=== PATIENT | female | born 2005 | race Caucasian/White ===

== ENCOUNTER 2024-10-03 23:17 | Emergency (ER) | payer BC, SELFPAY ==
[2024-10-03 23:19] VITALS: BP 144/98; PULSE 129; RESP 20; TEMP 36.8; O2SAT 100; BMI 19.2
--- NOTE | 2024-10-03 23:56 | PC.NURSE ---
notfied radiology at this time that pt needs TVUS
[2024-10-03] MEDS: AMOXICILLIN/CLAVULANATE POTASSIUM 875/125MG TABLET 1 EACH PO (23:57)
[2024-10-03] MEDS: diphenhydrAMINE ELIXIR 12.5MG/5ML UDC 12.5 MG PO (23:57)
--- NOTE | 2024-10-03 23:57 | HMH.EDGENADL ---
Discharge Plan Disposition Patient Disposition: Home, Self-Care Condition: Good Prescriptions Prescriptions: New amoxicillin-pot clavulanate 875-125 mg tablet 1 tab PO BID Qty: 20 0RF Referrals Follow up/Referrals: Meka Harman DO [Staff Physician] - See instructions (positive quant hcg without visualized intrauterine , presence of right ovarian cyst G1, P0) Provider,Referral, [Primary Care Provider] - See instructions Activity Restrictions/Add. Instructions Additional Instructions/Restrictions: You were evaluated in the ER and are appropriate for discharge at this time. Take Tylenol if needed for pain, do not exceed the recommended dose on the bottle. Drink water and eat a small snack when you take this medication to avoid side effects. Use the provided dental balls as directed. Leave on for 1 hour, remove for 1 hour. Do not sleep or eat/drink while these are in place. Call Dr. Harman's office for an appointment as soon as possible. Take the prescribed antibiotics as directed, do not skip doses, do not stop taking them early. Follow-up closely with a dentist for your dental pain, the details for the dental walk-in clinic are provided below. Return to the ER with new, worsening, or otherwise concerning symptoms. dental walk-in clinic: [address] [place] [address] They are open Sunday through Sunday except they are closed this 10/06/2024 and this 10/08/2024. You must arrive as early as possible as they are a first come, first serve clinic, they open at 7:45 AM. Clinical Impressions Clinical Impression: Cyst of right ovary, Pain, dental, Early stage of , Gingivitis Discharge ED Provider: Ale Mohan General Adult HPI General Chief complaint: Dental/Oral Stated complaint: tooth pain Time Seen by Provider: 10/03/24 23:24 Mode of Arrival: Ambulatory Source of Information: Patient Limitations: No Limitations Description of Symptoms (Recalled from ER Triage Doc. by RN): Pt presents to ED for dental pain. Pt states she has a broken tooth and has not followed up with dentistry. Pt states she normally takes ibuprofen but she's now and Tylenol doesn't work. Pt states pain is 8/10. History of Present Illness HPI narrative: 19-year-old female presents to the ER complaining of left mandibular dental pain. She states she has had a broken tooth for a long time in the left lower area but has not followed up with dentistry. Patient states she would typically take ibuprofen for this problem but she had a positive test at home 3 days ago. She states she took Tylenol but has not had improvement. Patient reports no difficulty breathing or swallowing, no fevers, chills, chest pain, shortness of breath. She has not had any vomiting, diarrhea, abdominal pain, or vaginal bleeding or discharge. Patient reports this to be her first . G1, P0. LMP 4 weeks ago. She does not have an OB but would like to see Dr. Harman Related Data Previous Rx's ?Medication ?Instructions ?Recorded amoxicillin 875 mg-potassium 1 tab PO BID #20 tabs 10/04/24 clavulanate 125 mg tablet Allergies Allergy/AdvReac Type Severity Reaction Status Date / Time No Known Allergies Allergy Verified 10/03/24 23:49 [facility] Disclaimer: The information contained in this section may have been updated after the patient was seen, as this information can be updated by other users. Social History Smoking Status: Unknown if ever smoked alcohol intake: never current occupational status: other Travel in the last 8 weeks: None ROS Obtained: Yes Systems reviewed as appropriate & no additional complaints except as documented per HPI Physical Exam General General appearance: alert and in no apparent distress Head Head exam: atraumatic and normocephalic Eye Eye exam: Present PERRL and EOMI ENT ENT exam: Present mucous membranes moist and other (No submandibular or sublingual swelling, no woodiness of the floor of the mouth, no lymphadenopathy) Expanded ENT Exam Teeth exam: Present fractured tooth # (19), dental tenderness # (19) and gingival swelling (with redness no abscess) Neck Neck exam: Present normal inspection and full ROM Chest Chest inspection: Present symmetric chest wall rise Respiratory Respiratory exam: Absent respiratory distress or stridor Cardiovascular Cardiovascular exam: Present regular rate and normal rhythm Abdominal Exam Abdominal exam: Present soft; Absent distention or tenderness Extremities Exam Extremities exam: Present full ROM; Absent edema Neurological Exam Neurological exam: Present alert and oriented X3; Absent motor sensory deficit Psychiatric Psychiatric exam: Present normal affect and normal mood Skin Skin exam: Present warm and dry Medical Decision Making Medical Records Screening: Per USPSTF and CDC recommendations, given the prevalence of disease in our region, it is our hospital?s policy to screen for HIV and viral Hepatitis for all patients aged 18 and over and those with ongoing risk factors. [place] Inquiry Pt receiving controlled substance: No Vital Signs: 10/03/24 23:19 Temperature 98.2 F Temperature Source Oral Pulse Rate [Left] 129 H Respiratory Rate 20 Blood Pressure [Right Arm] 144/98 H Blood Pressure Mean [Right Arm] 113 02 Sat by Pulse Oximetry 100 Oxygen Delivery Method Room Air Lab Data Lab Results 10/04/24 : HCG, Quant 1543 H Orders (Tests/Meds): ED MEDICATIONS Generic Name Dose Route Start Last Admin Trade Name Freq PRN Reason Stop Dose Admin Diphenhydramine HCl 12.5 mg 10/03/24 23:45 10/03/24 23:57 Diphenhydramine Elixir 12.5mg/5ml Udc PO 11/02/24 23:44 12.5 mg ONCE MARIO Administration Diphenhydramine HCl 12.5 mg 10/03/24 23:45 Diphenhydramine Elixir 12.5mg/5ml Udc PO 11/02/24 23:44 ONCE MARIO Discontinued Medications Generic Name Dose Route Start Last Admin Trade Name Freq PRN Reason Stop Dose Admin Acetaminophen 1,000 mg 10/04/24 00:20 10/04/24 01:10 Acetaminophen 500mg Tab PO 10/04/24 00:21 1,000 mg ONCE ONE Administration Amoxicillin/Clavulanate Potassium 1 each 10/03/24 23:40 10/03/24 23:57 Amoxicillin/Clavulanate Potassium 875/125mg Tablet PO 10/03/24 23:41 1 each ONCE ONE Administration ORDERS Category Date Time Status POCUS Point of Care (ER Only) Stat Exams 10/03/24 23:40 Completed HCG,Quantitative Stat Lab 10/03/24 23:40 Completed US OB transvaginal Routine Ultrasound 10/04/24 Completed Medical Decision Narrative: In summary, this 19-year-old female who is otherwise healthy, no chronic medical conditions, no daily medications, no known drug allergies who believes she is approximately 4 weeks based on home test and last menstrual period presents to the emergency department today with left lower dental pain. On initial evaluation patient is hemodynamically stable, afebrile, she has obvious dental fracture of the left mandibular molar tooth #19 with mild gingival swelling and erythema but no abscess. No submandibular or sublingual swelling or woodiness, no lymphadenopathy. Abdominal exam benign. Patient does not report any vaginal bleeding or discharge. Patient is obviously anxious which I believe likely caused her tachycardia that was present on arrival but absent during my exam but is otherwise behaving appropriately. Differential diagnosis includes but not limited to dental fracture, dental infection, dental abscess, I considered Bobby's angina but do not have evidence of this on exam, also considered intrauterine , ectopic , heterotopic . Quantitative hCG and [id number] ultrasound were ordered. I personally performed and interpreted [id number] ultrasound and do not visualize a definitive IUP and there is a fluid-filled sac in the right adnexa. Concern for possible ectopic . Formal transvaginal ultrasound ordered. Labs reviewed demonstrate quantitative hCG of 1543 which should be appropriate for patient's EGA. Transvaginal ultrasound does not demonstrate definitive IUP, there is a right ovarian cyst, ectopic was not identified. On reassessment patient remains stable and comfortable. She is not having abdominal pain or vaginal bleeding or abnormal discharge so I do not believe admission for serial abdominal exams or emergent OB consultation is indicated at this time. I did refer her to Dr. Harman for close follow-up. Patient was given explicit instructions on calling her office immediately for close follow-up and reevaluation. Patient was also given instructions on use of dental balls as well as symptomatic management at home, use of the Augmentin that was prescribed for dental infection, dentistry follow-up, and strict return precautions for the ER. She and significant other at bedside indicated understanding and the patient was discharged in stable condition. Procedures Miscellaneous Procedure Procedure Performed: Limited OB ultrasound Indication: Positive home test Identified structures: [-Uterus -Left adnexa -Right adnexa -Pouch of Mayur] Findings: Uterus: No definitive IUP FHR: Unable to be measured Right adnexa: Fluid-filled sac with abnormality Left adnexa: Unremarkable Cul de sac: Unremarkable Impression: -IUP: Not identified - heart rate: Not able to be measured No obvious ectopic , however there is a fluid-filled sac in the right adnexa concerning for possible early gestational sac versus ovarian cyst Images were saved to permanent archive The study was technically adequate CPT Transabdominal: 82618-40 This study was performed by me, and I personally interpreted all images/videos. Based on my clinical judgement, these images were adequate but did necessitate further imaging. Critical Care Critical Care Time Critical Care Time: No
--- NOTE | 2024-10-04 | US_ITS ---
PROCEDURE INFORMATION: Exam: US , Transvaginal Exam date and time: 10/04/2024 12:36 AM Age: 19 years old Clinical indication: Screening exam; Other: Area seen on RT adnexa done on US in er; LABS AND CLINICAL REPORTS: Last menstrual period start date: 09/03/2024 Gestational age (Established): 4 w 3 d Estimated due date (Established): 06/10/2025 TECHNIQUE: Imaging protocol: Real-time transvaginal obstetrical ultrasound of the maternal pelvis with image documentation. Transvaginal imaging was used for better evaluation of the fetus, adnexa, and/or cervix. COMPARISON: No relevant prior studies available. FINDINGS: Gestation: No intrauterine gestational sac visualized. MATERNAL: Right ovary/adnexa: Right ovary measures 3.18 cm x 4.24 cm x 3.72 cm. Right ovarian volume is 26.26 mL. 3.1 x 2.5 x 3 cm simple cyst. Left ovary/adnexa: Left ovary measures 1.73 cm x 2.49 cm x 2.3 cm. Left ovarian volume is 5.19 mL. The uterus is within normal limits in appearance. There is a thickened endometrial complex. IMPRESSION: No intrauterine visualized. Correlation with beta HCG and short interval follow-up ultrasound recommended. 3.1 cm right ovarian cyst.
[2024-10-04 00:46] LABS: HCG,Quantitative 1543 mIU/ml (0-5.42)
[2024-10-04] MEDS: ACETAMINOPHEN 500MG TAB 1000 MG PO (01:10)
[2024-10-04 02:52] VITALS: BP 144/98; PULSE 98; RESP 18; TEMP 36.8; O2SAT 100
== END 2024-10-04 02:51 | disposition home or self-care (01) ==
LOC: ER 10-04 03:02
PROVIDERS: Emergency Provider Emergency Medicine
DX: Z34.90 Encounter for supervision of normal pregnancy, unspecified, unspecified trimester (principal); K05.10 Chronic gingivitis, plaque induced; N83.201 Unspecified ovarian cyst, right side; K08.89 Other specified disorders of teeth and supporting structures
CPT/HCPCS: 76817; 84702; 99283

== ENCOUNTER 2024-10-07 13:51 | Outpatient (CLI) | payer BC, SELFPAY ==
[2024-10-07 15:08] LABS: HCG,Quantitative 8918 mIU/ml (0-5.42)
[2024-10-08 08:13] LABS: Progesterone 10.9 ng/mL (.)
== END 2024-10-07 23:59 | disposition home or self-care (01) ==
LOC: LAB 13:53
PROVIDERS: Visit Provider Obstetrics & Gynecology
DX: Z34.90 Encounter for supervision of normal pregnancy, unspecified, unspecified trimester (principal)
CPT/HCPCS: 36415; 84144; 84702

== ENCOUNTER 2024-10-20 16:42 | Outpatient (CLI) | payer BC, SELFPAY | END 2024-10-20 23:59 | disposition home or self-care (01) | LOC: LAB.DROPOF 16:42 | PROVIDERS: PCP Obstetrics & Gynecology; Visit Provider Obstetrics & Gynecology | DX: Z34.81 Encounter for supervision of other normal pregnancy, first trimester (principal) | CPT/HCPCS: 87086 ==

== ENCOUNTER 2024-11-10 12:10 | Outpatient (CLI) | payer BC, SELFPAY ==
[2024-11-10 12:55] LABS: Basophils % 0.4 % (0.1-2.0); Eosinophils # 0.1 K/mm3 (0.0-0.4); Eosinophils % 1.3 % (0.1-12.0); Hematocrit 36.9 % (37.0-47.0); Hemoglobin 12.6 g/dL (12.2-16.2); Lymphocytes # 1.4 K/mm3 (0.7-4.5); Lymphocytes % 19.9 % (10-50); Mean Corpuscular HGB Conc 34.1 g/dL (31.8-35.4); Mean Corpuscular Hemoglobin 28.5 pg (27.0-31.2); Mean Corpuscular Volume 83.5 fl (81-99); Mean Platelet Volume 9.8 fl (7.4-10.4); Monocytes # 0.2 K/mm3 (0.1-1.0); Monocytes % 3.2 % (1.7-9.3); Neutrophils # 5.1 K/mm3 (1.8-7.8); Neutrophils % 74.9 % (37.0-80.0); Platelet Count 251 K/mm3 (142-424); Red Blood Count 4.42 M/mm3 (4.20-5.40); Red Cell Distribution Width 12.6 % (11.5-17.5); White Blood Count 6.9 K/mm3 (4.8-10.8)
[2024-11-10 14:04] LABS: HIV Combo NEGATIVE (Negative)
[2024-11-10 14:15] LABS: Hepatitis C Ab Qual. W/ RFX NEGATIVE (Negative)
[2024-11-10 15:00] LABS: RPR W/RFX Titers Nonreactive (Nonreactive)
[2024-11-11 05:08] LABS: Hepatitis B Surface Antigen Negative (Negative)
[2024-11-11 07:10] LABS: Rubella Antibodies, IgG 3.04 index (Immune >0.99)
== END 2024-11-10 23:59 | disposition home or self-care (01) ==
LOC: LAB 12:11
PROVIDERS: Visit Provider Obstetrics & Gynecology
DX: Z34.81 Encounter for supervision of other normal pregnancy, first trimester (principal)
CPT/HCPCS: 36415; 85025; 86592; 86762; 86803; 86850; 87340; 87389

== ENCOUNTER 2025-01-21 12:51 | Outpatient (CLI) | payer BC, MEDICAID, SELFPAY ==
--- NOTE | 2025-01-21 13:00 | US_ITS ---
PROCEDURE: US OB /MATERNAL DETAIL CLINICAL INDICATION: needs in 1 week; 20 week anatomy scan COMPARISON: US US OB TRANSVAGINAL from 10/04/2024 FINDINGS: Transabdominal sonographic images of the pelvis were obtained. From her established due date she is 20 weeks 0 days. Single viable intrauterine gestation. Breech position. Placenta: Posteriorplacenta grade 1. Placental lakes are present. There is an average amount of fluid. The cervix appears satisfactory. Closed and measuring 3.93 cm in length. Complete survey performed and was unremarkable on the submitted images as in PACS. No discrete anomalies identified on survey imaging by technologist. Active fetus. Three-vessel cord with satisfactory umbilical cord insertion. 4- chamber heart noted. Situs, aortic arch, LVOT, RVOT, three-vessel view appear normal. There is a small echogenic focus in the left ventricle. Survey of brain & ventricles Unremarkable. Cerebellum, thalamus, choroid plexus, cisterna magna appear normal. Face and neck survey unremarkable. Profile, nasion, lips and nose appeared normal. Diaphragm and chest views unremarkable. Abdomen: Both kidneys noted. There is bilateral renal pelvis dilation measuring 6.4 mm and 7.2 mm. Follow-up is recommended. Stomach and bladder noted and satisfactory. There is a small echogenic area within the stomach. Spine: Survey of the spine satisfactory with no anomalies identified nor imaged. Cervical, thoracic, lower spine appear normal. Both arms and legs noted. Amniotic Fluid: Adequate. MVP 3.99 cm Measurements: Average ultrasound age 20weeks 3days. Estimated due date by ultrasound age 0906/07/2025. Estimated weight 346g BPD = 20weeks 1day HC = 20weeks 3days AC = 20weeks 4days FL = 20weeks 2days Growth Percentile= 64 Heart Rate = 147bpm Cerebellum = 19weeks 3days HC/AC is 1.17 FL/BPD is 0.7 FL/AC is 0.21 IMPRESSION: 1. Viable fetus in the breech presentation with a posterior placenta grade 1. 2. The fluid is within normal limits with an MVP 3.99 cm. 3. biometry is consistent with the dates. 4. There is a small echogenic focus within the left ventricle. There is an echogenic area within the stomach. There is bilateral renal pelvis dilation measuring 6.4 mm and 7.2 mm. 5. Suggest a maternal medicine consult given 3 separate minor abnormalities. 6. The rest of the anatomical scan appears normal. Dictated by: Quincy Mcmillan MD 01/21/2025 16:46 Quincy Mcmillan MD in [place] 01/21/2025 16:46
== END 2025-01-21 23:59 | disposition home or self-care (01) ==
LOC: RAD 12:52
PROVIDERS: PCP Obstetrics & Gynecology; Visit Provider Obstetrics & Gynecology
DX: O21.9 Vomiting of pregnancy, unspecified (principal); Z3A.19 19 weeks gestation of pregnancy
CPT/HCPCS: 76811

== ENCOUNTER 2025-03-13 15:16 | Outpatient (CLI) | payer BC, MEDICAID, SELFPAY ==
[2025-03-13 16:45] LABS: Basophils % 0.3 % (0.1-2.0); Eosinophils # 0.1 Kmm3 (0.0-0.4); Hematocrit 31.1 % (37.0-47.0); Hemoglobin 10.2 g/dL (12.2-16.2); Immature Granulocytes # 0.14 10^3uL; Immature Granulocytes % 1.3 %; Lymphocytes # 1.9 K/mm3 (0.7-4.5); Mean Corpuscular HGB Conc 32.8 g/dL (31.8-35.4); Mean Corpuscular Hemoglobin 27.5 pg (27.0-31.2); Mean Corpuscular Volume 83.8 fl (81-99); Mean Platelet Volume 9.5 fl (7.4-10.4); Monocytes # 0.4 K/mm3 (0.1-1.0); Monocytes % 3.5 % (1.7-9.3); Neutrophils # 8.5 K/mm3 (1.8-7.8); Neutrophils % 76.9 % (37.0-80.0); Nucleated Red Blood Cells # 0 10^3/uL; Nucleated Red Blood Cells % 0 %; Platelet Count 252 K/mm3 (142-424); Red Blood Count 3.71 M/mm3 (4.20-5.40); Red Cell Distribution Width 12.9 % (11.5-17.5); Red Cell Distribution Width-SD 39.8 fL; White Blood Count 11.1 K/mm3 (4.8-10.8)
[2025-03-13 16:56] LABS: Glucose 1 Hour 125 mg/dL (74-100)
[2025-03-14 11:38] LABS: RPR W/RFX Titers Nonreactive (Nonreactive)
== END 2025-03-13 23:59 | disposition home or self-care (01) ==
LOC: LAB 15:17
PROVIDERS: Visit Provider Obstetrics & Gynecology
DX: Z34.82 Encounter for supervision of other normal pregnancy, second trimester (principal)
CPT/HCPCS: 36415; 82947; 85025; 86592

== ENCOUNTER 2025-05-12 02:18 | Outpatient (CLI) | payer BC, MEDICAID, SELFPAY ==
--- OUTSIDE RECORDS SUMMARY | 2025-03-17 12:45 | XMS_ITS | Encounter Summary ---
Author Organization [facility] Address [address] [place] [id number] Care Team Providers Care Kiln Stoker Name Role Phone Provider, No Known Primary Care Provider Unavail able Reason for Visit * Reason Comments RPD; hyperechoic area in stomach Encounter Details Date Type Department Care Team (Late st Contact Info) Description 03/17/2025 12:45 PM EDT Office Visit [facility] [address] [place] [address] Phillip Mohan MD [address] [facility] [address] [place] [address] Pyelectasis of fetus on ultrasound (Primary Dx) Social History Tobacco Use Types Packs/Day Years Used Date Smoking Tobacco: Never Smokeless Tobacco: Never Alcohol Use Standard Drinks/Week Comments Not Currently 0 (1 standard drink = 0.6 oz pur e alcohol) Estimated Date of Delivery Comme nts Yes 06/10/2025 Date entered juan j or to episode creation Sex and Gender Information Value Date Recorded Sex Assigned at Not on file Legal Sex Female 2:32 PM EDT Gender Identity Not on file Sexual Orientation Not on file documented as of this encounter Last Filed Vital Signs Vital Sign Reading Time Taken Comments Blood Pressure 114/71 03/17/2025 1:04 PM EDT Pulse - - Temperature - - Respiratory Rate - - Oxygen Saturation - - Inhaled Oxygen Concentration - - Weight 56.2 kg (124 lb) 03/17/2025 1:04 PM EDT Height - - Body Mass Index 22.68 02/11/2025 12:03 PM EDT documented in this encounter Progress Notes * Josi Hernandez RN - 03/17/2025 12:45 PM EDT Patient denies any leaking of fluid, vaginal bleeding, or contractions. NIPT negative. Patient reports next follow-up appointment with Dr. Harman's office is next week. * Phillip Mohan MD - 03/17/2025 12:45 PM EDT Documentation of the ultrasound findings, images, and interpretations will be available in the patient's Viewpoint report which is located in the imaging tab in chart review. documented in this encounter Plan of Treatment Not on file documented as of this encounter Visit Diagnoses Diagnosis Pyelectasis of fetus on ultrasound- Primary documented in this encounter Care Teams Kiln Stoker Relationship Specialty Start Date End Date Provider, [place] [address] PCP - General 01/22/25 documented as of this encounter
--- OUTSIDE RECORDS SUMMARY | 2025-03-17 12:45 | XMS_ITS | Encounter Summary ---
Author Organization [facility] Address [address] [place] [address] Care Team Providers Care Flanging Machine Operator Name Role Phone Provider, No Known Primary Care Provider Unavail able Reason for Referral * Diagnostic Imaging (Routine) - Closed Specialty Diagnoses / Procedures Referred By Geni purvis Referred To Contact Radiology Diagnoses Pyelectasis of fetus on ultrasound Suspected anomaly not found Procedures [facility] [place] [address] [place] [address] Phone: tel: fax: Referral ID Status Reason Start Date Expiration Date Visits Re quested Visits Authorized [id number] Closed 02/11/2025 05/13/2026 1 1 Reason for Visit * Diagnostic Imaging (Routine) - Closed Specialty Diagnoses / Procedures Referred By Geni purvis Referred To Contact Radiology Diagnoses Pyelectasis of fetus on ultrasound Suspected anomaly not found Procedures [facility] Tamra Pringle MD [address] [id number] Phone: tel: fax: Referral ID Status Reason Start Date Expiration Date Visits Re quested Visits Authorized [id number] Closed 02/11/2025 05/13/2026 1 1 Encounter Details Date Type Department Care Team (Late st Contact Info) Description 03/17/2025 12:45 PM EDT - 03/17/2025 11:59 PM EDT Hospital Encounter [facility] US PER DIAG CTR [address] [place] [id number] Tamra Pringle MD [address] [place], [place] [id number] Pyelectasis of fetus on ultrasound; Suspected anomaly not found Discharge Disposition: Home or Self Care Social History Tobacco Use Types Packs/Day Years [...] on file documented as of this encounter Medications at Time of Discharge ferrous sulfate 324 (65 Fe) MG tablet delayed-release EC tablet Take 1 tablet by mouth Daily With Breakfast. ondansetron ODT (ZOFRAN-ODT) 4 MG disintegrating tablet Every 6 (Six) Hours As Needed. 01/16/2025 pantoprazole (PROTONIX) 40 MG EC tablet Take 1 tablet by mouth Daily. 12/12/2024 Vit-Fe Fumarate-FA ( vitamin 27-0.8) 27-0.8 MG tablet tablet Take 1 tablet by mouth Daily. documented as of this encounter Plan of Treatment Not on file documented as of this encounter Procedures Procedure Name Priority Date/Time Associated Diagnosis Comments [facility] Routine 03/17/2025 1:35 PM EDT Pyelectasis of fetus on ultrasound Suspected anomaly not found documented in this encounter Results * [facility] (03/17/2025 1:35 PM EDT) Anatomical Region Laterality Modality Ultrasound 03/17/2025 1:10 PM EDT Narrative 03/17/2025 1:38 PM EDT PAT NAME: TED VILLAVICENCIO MED REC#: [id number] DA: 2005 PAT GEND: F PAT TYPE: O EXAM DAI: [id number] REF PHYS YOU MONTEMAYOR Comparison Studies The findings of this study are compared to the prior ultrasound study dated 02/11/25 Patient Status Outpatient Indication ======== Concern for echogenic area in stomach. EIF. Bilateral RPD. Maternal Assessment Height 157 cm Height (ft) 5 ft Height (in) 2 in Weight 56 kg Weight (lb) 124 lb BMI 22.82 kg/m Method ======= Transabdominal ultrasound examination ========= [place] . Number of fetuses: 1 Dating ====== Method of dating: based on stated JACOB GA by prior assessment 27 w + 6 d JACOB by prior assessment: 06/10/2025 Ultrasound examination on: 03/17/2025 GA by U/S based upon: AC, BPD, Femur, HC GA by U/S 28 w + 5 d JACOB by U/S: 06/04/2025 Previous dating: based on stated JACOB, selected on 02/11/2025 Agreed JACOB of previous datin06/10/2025 Assigned: based on stated JACOB, selected on 03/17/2025 Assigned GA 27 w + 6 d Assigned JACOB: 06/10/2025 length 280 d Biometry Standard BPD 72.7 mm 29w 1d 80% Hadlock OFD 98.3 mm 31w 5d >99% Grzegorz HC 273.2 mm 29w 6d 80% Hadlock Cerebellum tr 33.3 mm 28w 1d 64% Hill AC 237.5 mm 28w 0d 48% Hadlock Femur 52.4 mm 27w 6d 36% Hadlock HC / AC 1.15 EFW 1,197 g 27w 6d 52% Hadlock EFW (lb) 2 lb EFW (oz) 10 oz EFW by: Hadlock (IQA-ED-TB-FL) Extended Cav. septi pel. tr 6.4 mm Bottom Steep Tender 4.7 mm CM 5.5 mm 18% Nicolaides Head / Face / Neck Cephalic index 0.74 8% Nicolaides Extremities / Bony Struc FL / BPD 0.72 FL / HC 0.19 FL / AC 0.22 Other Structures FHR 139 bpm General Evaluation Cardiac activity present. FHR 139 bpm. movements present. Presentation cephalic. Placenta Placental site: posterior. Umbilical cord Cord vessels: 3 vessel cord. Amniotic fluid Amount of AF: normal. MVP 5.0 cm. Anatomy Cranium: Normal Cavum septi pellucidi: Normal Cerebellum: Normal Cisterna magna: Normal Head / Neck Rt lateral ventricle: Normal Lt lateral ventricle: Normal Lips: Normal Profile: Normal Nose: Normal 4-chamber view: Appears normal RVOT view: Normal LVOT view: Normal Heart / Thorax 3-vessel view: Normal 2-qcdloj-iygnmyz view: normal Cord insertion: Normal Bladder: Appears normal Abdomen Stomach: hyperechoic area as previously noted Rt kidney: The AP diameter of the right renal pelvis measures 4mm Lt kidney: The AP diameter of the left renal pelvis measures 5mm Gender: male Wants to know gender: yes Impression Today's exam reveals a SIUP in cephalic presentation with biometry consistent with dates. Limited anatomic survey appears normal. The amniotic fluid is normal. Recommendation Follow up as clinically indicated. Coding ======= Description: 84588-49 Follow Up Toll Mechanic: Tori Palencia RDMS Physician: Phillip Mohan MD, FACOG Electronically signed by: Phillip Mohan MD, FACOG at: 13:38 Procedure Note Phillip Mohan MD - 03/17/2025 PAT NAME: GAGANTED GOYAL [facility] REC#: [id number] DA: 2005 PAT GEND: F PAT TYPE: O EXAM DAI: [id number] REF PHYS YOU MONTEMAYOR Comparison Studies The findings of this study are compared to the prior ultrasound studydated 02/11/25 Patient Status Outpatient Indication ======== Concern for echogenic area in stomach. EIF. Bilateral RPD. Maternal Assessment Toegqg650 cm Height (ft)5 ft Height (in)2 in Mujchc90 kg Weight (lb)124 lb BMI22.82 kg/m Method ======= Transabdominal ultrasound examination ========= [place] . Number of fetuses: 1 Dating ====== Method of dating:based on stated JACOB GA by prior [id number] w + 6 d JACOB by prior assessment:06/10/2025 Ultrasound examination on:03/17/2025 GA by U/S based upon:AC, BPD, Femur, HC GA by U/S28 w + 5 d JACOB by U/S:06/04/2025 Previous dating:based on stated JACOB, selected on 02/11/2025 Agreed JACOB of previous datin06/10/2025 Assigned:based on stated JACOB, selected on 03/17/2025 Assigned GA27 w + 6 d Assigned JACOB:06/10/2025 [id number] d Biometry Standard BPD72.7 mm 29w 1d 80% Hadlock OFD98.3 mm 31w 5d >99% Grzegorz HC273.2 mm 29w 6d 80% Hadlock Cerebellum tr33.3 mm 28w 1d 64% Hill AC237.5 mm 28w 0d 48% Hadlock Femur52.4 mm 27w 6d 36% Hadlock HC / AC1.15 EFW1,197 g 27w 6d 52% Hadlock EFW (lb)2 lb EFW (oz)10 oz EFW by:Hadlock (GOM-BZ-NW-FL) Extended Cav. septi pel. tr6.4 mm Vp4.7 mm CM5.5 mm 18% Nicolaides Head / Face / Neck Cephalic index0.74 8% Nicolaides Extremities / Bony Struc FL / BPD0.72 FL / HC0.19 FL / AC0.22 Other Structures [id number] bpm General Evaluation Cardiac activity present. FHR 139 bpm. movements present. Presentation cephalic. Placenta Placental site: posterior. Umbilical cord Cord vessels: 3 vessel cord. Amniotic fluid Amount of AF: normal. MVP 5.0 cm. Anatomy Cranium:Normal Cavum septi pellucidi:Normal Cerebellum:Normal Cisterna magna:Normal Head / Neck Rt lateral ventricle:Normal Lt lateral ventricle:Normal Lips:Normal Profile:Normal Nose:Normal 4-chamber view:Appears normal RVOT view:Normal LVOT view:Normal Heart / Thorax 3-vessel view:Normal 9-xuodvw-aohfjnh view:normal Cord insertion:Normal Bladder:Appears normal Abdomen Stomach:hyperechoic area as previously noted Rt kidney:The AP diameter of the right renal pelvis measures 4mm Lt kidney:The AP diameter of the left renal pelvis measures 5mm Gender:male Wants to know gender:yes Impression Today's exam reveals a SIUP in cephalic presentation with biometryconsistent with dates. Limited anatomic survey appears normal. Theamniotic fluid is normal. Recommendation Follow up as clinically indicated. Coding ======= Description:60781-45 Follow Up Toll Mechanic: Tori Palencia RDMS Physician: Phillip Mohan MD, FACOG Electronically signed by: Phillip Mohan MD, FACOG at: 13:38 us Tamra Pringle MD IMG US ORDERABLES Final Res ult documented in this encounter Visit Diagnoses Diagnosis Pyelectasis of fetus on ultrasound Suspected anomaly not found documented in this encounter Care Teams Flanging Machine Operator Relationship Specialty Start Date End Date Provider, [place] [address] PCP - General 01/22/25 documented as of this encounter
--- OUTSIDE RECORDS SUMMARY | 2025-05-12 02:21 | XMS_ITS | Encounter Summary ---
Author Organization [facility] Address [address] [place] [address] Care Team Providers Care Drafter Patent Name Role Phone Provider, No Known Primary Care Provider Unavail able Encounter Details Date Type Department Care Team (Latest Contact Info) Description 03/17/2025 Travel Social History Tobacco Use Types Packs/Day Years [...] on file documented as of this encounter Plan of Treatment Not on file documented as of this encounter Visit Diagnoses Not on filedocumented in this encounter Care Teams Drafter Patent Relationship Specialty Start Date End Date Provider, [place] [address] PCP - General 01/22/25 documented as of this encounter
--- OUTSIDE RECORDS SUMMARY | 2025-05-12 02:21 | XMS_ITS | Clinical Summary ---
Author Organization [facility] Address [address] [place] [id number] Care Team Providers Care Supervisor Cereal Name Role Phone Provider, No Known Primary Care Provider Unavail able Allergies No known active allergies Medications ondansetron ODT (ZOFRAN-ODT) 4 MG disintegrating tablet Every 6 (Six) Hours As Needed. 5 Active pantoprazole (PROTONIX) 40 MG EC tablet Take 1 tablet by mouth Daily. 5 Active Vit-Fe Fumarate-FA ( vitamin 27-0.8) 27-0.8 MG tablet tablet Take 1 tablet by mouth Daily. Active ferrous sulfate 324 (65 Fe) MG tablet delayed-release EC tablet Take 1 tablet by mouth Daily With Breakfast. Active Active Problems Problem Noted Date Diagnosed Date Pyelectasis of fetus on ultrasound 01/16 Assessment & Plan (02/11/2025 12:57 PM EDT): The fetus has bilateral mild renal pyelectasis. The pelviureteric junctions are dilated with AP diameters of 6.4 mm on the left and 6.2 mm on the right. At this gestational age this is regarded as mildly dilated. The dilatation is extrarenal (does not penetrate the parenchyma) consistent with stage 1 hydronephrosis. There is no extension of this dilatation into the kidney pelves bilaterally suggesting that there is no significant UPJ obstruction. There are no signs of ureterocele or duplication of the ureteric system. There is normal amniotic fluid volume. The implications of this ultrasound finding were explained to the patient. The majority of antenatally diagnosed cases of hydronephrosis resolve spontaneously in the period with only 3 to 4% requiring surgical treatment. A risk of 1% for Down syndrome or some other chromosomal aneuploidy has been quoted with this finding. She was informed that very occasionally the kidney may dilate substantially but that only in a situation where both kidneys are threatened or should oligohydramnios develop would she be delivered early for hydronephrosis. I have told the patient that her will need to be followed by a shirring tender or pediatric urologist after delivery if the renal pelvis dilatation is > 7 mm and her infant should receive antibiotic therapy until a renal ultrasound is performed. Pt is s/p low risk NIPT. - Follow-up scheduled here in 5wks to reassess kidneys Suspected anomaly not found 02/11/2025 Assessment & Plan (02/11/2025 1:01 PM EDT): There was concern for an EIF in the left ventricle of the heart. On our scan, the slight bright spot is not as bright as bone so does not meet criteria for an EIF. A light bright spot is not thought to interfere with either structure or function of the heart and is just considered a normal variant. There is a slight echogenicity noted in the stomach. Patient denies having any bleeding earlier in the . There stomach itself appears to be normally formed without evidence of obstruction or other structural issues. It is difficult to know if this is anything to be worried about or if we are just seeing the back wall of the stomach because the patient is so thin. - We will reassess in 5wks Estimated Date of Delivery Comme nts Yes 06/10/2025 Date entered juan j or to episode creation Encounters Date Type Department Care Team Description 03/17/2025 12:45 PM EDT - 03/17/2025 11:59 PM EDT Hospital Encounter [facility] US PER DIAG CTR [address] [facility] [place] [address] Tamra Pringle MD Pyelectasis of fetus on ultrasound; Suspected anomaly not found Discharge Disposition: Home or Self Care 03/17/2025 12:45 PM EDT Office Visit [facility] [address] [facility] [address] [place] [phone] Phillip Mohan MD Pyelectasis of fetus on ultrasound (Primary Dx) 03/17/2025 Travel 02/11/2025 11:30 AM EDT - 02/11/2025 11:59 PM EDT Hospital Encounter [facility] US PER DIAG CTR [address] [place] [address] Meka Harman DO Abnormal ultrasound; Echogenic bowel of fetus on ultrasound; Echogenic intracardiac focus of fetus on ultrasound; Encounter for repeat ultrasound of pyelectasis in armenta , antepartum; , unspecified gestational age Discharge Disposition: Home or Self Care 02/11/2025 11:30 AM EDT Office Visit [facility] [address] [phone] Tamra Pringle MD Pyelectasis of fetus on ultrasound (Primary Dx); Suspected anomaly not found; 23 weeks gestation of 02/11/2025 Travel from Last 3 Months Social History Tobacco Use Types Packs/Day Years Used Date Smoking Tobacco: Never Smokeless Tobacco: Never Tobacco Cessation:Counseling Given: Not Answered Alcohol Use Standard Drinks/Week Comments Not Currently 0 (1 standard drink = 0.6 oz pur e alcohol) Estimated Date of Delivery Comme nts Yes 06/10/2025 Date entered juan j or to episode creation Sex and Gender Information Value Date Recorded Sex Assigned at Not on file Legal Sex Female 2:32 PM EDT Gender Identity Not on file Sexual Orientation Not on file Last Filed Vital Signs Vital Sign Reading Time Taken Comments Blood Pressure 114/71 03/17/2025 1:04 PM EDT Pulse - - Temperature - - Respiratory Rate - - Oxygen Saturation - - Inhaled Oxygen Concentration - - Weight 56.2 kg (124 lb) 03/17/2025 1:04 PM EDT Height 157.5 cm (5' 2 ) 02/11/2025 12:03 PM EDT Body Mass Index 22.68 02/11/2025 12:03 PM EDT Plan of Treatment Health Maintenance Due Date Last Done Comments Annual Gynecologic Pelvic an d Breast Exam 2003 HPV VACCINES (1 - 3-dose series) 2018 MENINGOCOCCAL B VACCINE (1 o f 2 - Standard) 2019 TDAP/TD VACCINES (1 - Tdap) 2022 COVID-19 Vaccine ( - 2023-2 5 season) 2024 PAP SMEAR 2024 ANNUAL PHYSICAL 01/22/2025 CHLAMYDIA SCREENING 01/22/2025 HEPATITIS C SCREENING 01/22/2025 RSV Vaccine - Adults (1 - Ri sk 1-dose series) 05/18/2025 INFLUENZA VACCINE 06/17/2025 MENINGOCOCCAL VACCINE Aged Out No riky pb eligible based on patient's age to complete this topic Pneumococcal Vaccine 0-49 Aged Out No longer eligible based on patient's age to complete this topic Procedures Procedure Name Priority Date/Time Associated Diagnosis Comments [facility] Routine 03/17/2025 1:35 PM EDT Pyelectasis of fetus on ultrasound Suspected anomaly not found [facility] Routine 02/11/2025 12:52 PM EDT Abnormal ultrasound Echogenic bowel of fetus on ultrasound Echogenic intracardiac focus of fetus on ultrasound Encounter for repeat ultrasound of pyelectasis in armenta , antepartum , unspecified gestational age from Last 3 Months Results * [facility] (03/17/2025 1:35 PM EDT) Only the most recent of2 resultswithin the time period is included. Anatomical Region Laterality Modality Ultrasound 03/17/2025 1:10 PM EDT Narrative 03/17/2025 1:38 PM EDT PAT NAME: MELISSA OCONNORA MED REC#: [id number] DA: 2005 PAT GEND: F PAT TYPE: O EXAM DAI: [id number] REF PHYS MEKA HARMAN Comparison Studies The findings of this study are compared to the prior ultrasound study dated 02/11/25 Patient Status Outpatient Indication ======== Concern for echogenic area in stomach. EIF. Bilateral RPD. Maternal Assessment Height 157 cm Height (ft) 5 ft Height (in) 2 in Weight 56 kg Weight (lb) 124 lb BMI 22.82 kg/m Method ======= Transabdominal ultrasound examination ========= [place] . Number of fetuses: 1 Dating ====== [...] EFW (oz) 10 oz EFW by: Hadlock (IZJ-AE-UW-FL) Extended Cav. septi pel. tr 6.4 mm Ems Coordinator 4.7 mm CM 5.5 mm 18% Nicolaides [...] Normal Heart / Thorax 3-vessel view: Normal 1-stisnw-lmbwvop view: normal Cord insertion: Normal Bladder: Appears [...] up as clinically indicated. Coding ======= Description: 18126-14 Follow Up Research Director: Tori Palencia RDMS Physician: Phillip Mohan MD, FACOG Electronically signed by: Phillip Mohan MD, FACOG at: 13:38 Procedure Note Phillip Mohan MD - 03/17/2025 PAT NAME: ELVINTED MED REC#: [id number] DA: [id number] PAT GEND: F PAT TYPE: O EXAM DAI: [id number] REF PHYS ALBINA MEKA Comparison Studies The findings of this study are compared to the prior ultrasound studydated 02/11/25 Patient Status Outpatient Indication ======== Concern for echogenic area in stomach. EIF. Bilateral RPD. Maternal Assessment Xbxbrc541 cm Height (ft)5 ft Height (in)2 in Focrfi12 kg Weight (lb)124 lb BMI22.82 kg/m Method ======= Transabdominal ultrasound examination ========= [place] . Number of fetuses: 1 Dating ====== Method of dating:based on stated JACOB GA by prior [id number] w + 6 d JACOB by prior assessment:06/10/2025 Ultrasound examination on:03/17/2025 GA by U/S based upon:AC, BPD, Femur, HC GA by U/S28 w + 5 d JACOB by U/S:06/04/2025 Previous dating:based on stated JACOB, selected on 02/11/2025 Agreed JACOB of previous datin06/10/2025 Assigned:based on stated JACOB, selected on 03/17/2025 Assigned GA27 w + 6 d Assigned JACOB:06/10/2025 [id number] d Biometry Standard BPD72.7 mm 29w 1d 80% Hadlock OFD98.3 mm 31w 5d >99% Grzegorz HC273.2 mm 29w 6d 80% Hadlock Cerebellum tr33.3 mm 28w 1d 64% Hill AC237.5 mm 28w 0d 48% Hadlock Femur52.4 mm 27w 6d 36% Hadlock HC / AC1.15 EFW1,197 g 27w 6d 52% Hadlock EFW (lb)2 lb EFW (oz)10 oz EFW by:Hadlock (ATU-IA-WG-FL) Extended Cav. septi pel. tr6.4 mm Vp4.7 mm CM5.5 mm 18% Nicolaides Head / Face / Neck Cephalic index0.74 8% Nicolaides Extremities / Bony Struc FL / BPD0.72 FL / HC0.19 FL / AC0.22 Other Structures [id number] bpm General Evaluation Cardiac activity present. FHR [...] LVOT view:Normal Heart / Thorax 3-vessel view:Normal 8-ffehmt-aqobvgh view:normal Cord insertion:Normal Bladder:Appears normal Abdomen Stomach:hyperechoic [...] Follow up as clinically indicated. Coding ======= Description:65612-41 Follow Up Research Director: Tori Palencia RDMS Physician: Phillip Mohan MD, FACOG Electronically signed by: Phillip Mohan MD, FACOG at: 13:38 us Tamra Pringle MD IMG US ORDERABLES Final Res ult from Last [address] [place] [address] [place] [address] PPO [employer] Care Teams Supervisor Cereal Relationship Specialty Start Date End Date Provider, [place] [address] PCP - General 01/22/25
[2025-05-12 02:24] VITALS: BMI 24.1
[2025-05-12 02:30] VITALS: BP 141/93; PULSE 89; RESP 18; TEMP 36.8; O2SAT 100
[2025-05-12 02:30] LABS: Microscopic, Urine URINE MICROSCOPIC (MICROSCOPIC)
[2025-05-12 02:32] VITALS: BP 141/93; PULSE 89; RESP 18; TEMP 36.8; O2SAT 100; BMI 24.1
[2025-05-12 02:32] LABS: Bilirubin,Urine Negative (Negative); Color,Urine YELLOW (Yellow); Glucose,Urine (UA) TRACE (Negative); Ketones,Urine Negative (Negative); Leukocyte Esterase,Urine TRACE (Negative); PH,Urine 6.0 (5.0-8.5); Protein,Urine Negative (Negative); Specific Gravity, Urine 1.010 (1.005-1.030); Urobilinogen,Urine 0.2 EU/dl (0.2)
[2025-05-12 02:43] LABS: Bacteria,Urine Trace /lpf; WBC,Urine Occasional #/hpf (0-3)
[2025-05-12 02:52] VITALS: BP 123/85
== END 2025-05-12 03:06 | disposition home or self-care (01) ==
LOC: OBOUT 02:20 → OB 02:20
PROVIDERS: Visit Provider Obstetrics & Gynecology
DX: O26.893 Other specified pregnancy related conditions, third trimester (principal); O21.9 Vomiting of pregnancy, unspecified; R12 Heartburn; Z3A.33 33 weeks gestation of pregnancy
CPT/HCPCS: 59025; 81001; 99212; G0463

== ENCOUNTER 2025-05-19 11:00 | Outpatient (CLI) | payer BC, MEDICAID, SELFPAY ==
--- OUTSIDE RECORDS SUMMARY | 2025-05-20 10:46 | XMS_ITS | Clinical Summary ---
Author Organization [facility] Address [address] [place] [id number] Care Team Providers Care Claim Specialist Name Role Phone Provider, No Known Primary [...] I have told the patient that her infant will need to be followed by a animal rehabilitator or pediatric urologist after delivery if the renal pelvis dilatation is > 7 mm and her should receive antibiotic therapy until a renal [...] - 03/17/2025 11:59 PM EDT Hospital Encounter [facility] [address] [facility] [place] [address] Tamra Pringle MD Pyelectasis of fetus on ultrasound; Suspected anomaly not found Discharge Disposition: Home or Self Care 03/17/2025 12:45 PM EDT Office Visit [facility] [address] [place] [address] Phillip Mohan MD Pyelectasis of fetus on ultrasound (Primary Dx) 03/17/2025 Travel from Last 3 Months Social History [...] Procedure Name Priority Date/Time Associated Diagnosis Comments [facility] Routine 03/17/2025 1:35 PM EDT Pyelectasis of fetus on ultrasound Suspected anomaly not found from Last 3 Months Results * [facility] (03/17/2025 1:35 PM EDT) Anatomical Region Laterality Modality Ultrasound 03/17/2025 1:10 PM EDT Narrative 03/17/2025 1:38 PM EDT PAT NAME: TED OCONNOR MED REC#: [id number] DA: [id number] PAT GEND: F PAT TYPE: O EXAM DAI: [id number] REF PHYS YOU MONTEMAYOR Comparison Studies The [...] EFW (oz) 10 oz EFW by: Hadlock (FMX-MA-DE-FL) Extended Cav. septi pel. tr 6.4 mm Therapeutic Riding Instructor 4.7 mm CM 5.5 mm 18% Nicolaides [...] Normal Heart / Thorax 3-vessel view: Normal 5-dgrnlj-mhdbxll view: normal Cord insertion: Normal Bladder: Appears [...] up as clinically indicated. Coding ======= Description: 13115-23 Follow Up Pet Food Deboner: Tori Palencia RDMS Physician: Phillip Mohan MD, FACOG Electronically signed by: Phillip Mohan MD, FACOG at: 13:38 Procedure Note Phillip Mohan MD - 03/17/2025 PAT NAME: TED OCONNOR MED REC#: [id number] DA: 2005 PAT GEND: F PAT TYPE: O EXAM DAI: [id number] REF PHYS YOU MONTEMAYOR Comparison Studies The findings of this study are compared to the prior ultrasound studydated 02/11/25 Patient Status Outpatient Indication ======== Concern for echogenic area in stomach. EIF. Bilateral RPD. Maternal Assessment Pqodfd065 cm Height (ft)5 ft Height (in)2 in Blydwr29 kg Weight (lb)124 lb BMI22.82 kg/m Method ======= Transabdominal ultrasound examination ========= [place] . Number of fetuses: 1 Dating ====== Method of dating:based on stated JACOB GA by prior [id number] w + 6 d JACOB by prior assessment:06/10/2025 Ultrasound examination on:03/17/2025 GA by U/S based upon:AC, BPD, Femur, HC GA by U/S28 w + 5 d JACOB by U/S:06/04/2025 Previous dating:based on stated JACOB, selected on 02/11/2025 Agreed JACOB of previous datin06/10/2025 Assigned:based on stated JACOB, selected on 03/17/2025 Assigned GA27 w + 6 d Assigned JACOB:06/10/2025 [id number] d Biometry Standard BPD72.7 mm 29w 1d 80% Hadlock OFD98.3 mm 31w 5d >99% Grzegorz HC273.2 mm 29w 6d 80% Hadlock Cerebellum tr33.3 mm 28w 1d 64% Hill AC237.5 mm 28w 0d 48% Hadlock Femur52.4 mm 27w 6d 36% Hadlock HC / AC1.15 EFW1,197 g 27w 6d 52% Hadlock EFW (lb)2 lb EFW (oz)10 oz EFW by:Hadlock (BWF-PZ-GU-FL) Extended Cav. septi pel. tr6.4 mm Vp4.7 mm CM5.5 mm 18% Nicolaides Head / Face / Neck Cephalic index0.74 8% Nicolaides Extremities / Bony Struc FL / BPD0.72 FL / HC0.19 FL / AC0.22 Other Structures RIB308 bpm General Evaluation Cardiac activity present. FHR [...] LVOT view:Normal Heart / Thorax 3-vessel view:Normal 8-bdbesj-yykblba view:normal Cord insertion:Normal Bladder:Appears normal Abdomen Stomach:hyperechoic [...] Follow up as clinically indicated. Coding ======= Description:59259-50 Follow Up Pet Food Deboner: Tori Palencia RDMS Physician: Phillip Mohan MD, FACOG Electronically signed by: Phillip Mohan MD, FACOG at: 13:38 us Tamra Pringle MD IMG US ORDERABLES Final Res ult from Last 3 Months Insurance [facility] [employer] O Member Subscriber Plan / Payer (Ef fective 2023-Present) Name:Ted Oconnor Relation to Subscriber:Child Name:West Oconnor Date of :1974 [address] [place] [address] Payer ID:[id number] (NAIC) Type:Not on file Address: [address] MEDICAID Care Teams Claim Specialist Relationship Specialty Start Date End Date Provider, No Known [facility] [place] [address] PCP - General 01/22/25
== END 2025-05-19 23:59 | disposition home or self-care (01) ==
LOC: LAB.DROPOF 05-20 10:41
PROVIDERS: PCP Obstetrics & Gynecology; Visit Provider Obstetrics & Gynecology
DX: O26.892 Other specified pregnancy related conditions, second trimester (principal); R12 Heartburn
CPT/HCPCS: 86403

== ENCOUNTER 2025-05-28 12:11 | Outpatient (CLI) | payer BC, MEDICAID, SELFPAY ==
--- OUTSIDE RECORDS SUMMARY | 2025-05-28 12:15 | XMS_ITS | Clinical Summary ---
Author Organization [facility] Address [address] [place] [phone] Care Team Providers Care Aurist Name Role Phone Provider, No Known Primary [...] will need to be followed by a post form remover or pediatric urologist after delivery if the [...] - 03/17/2025 11:59 PM EDT Hospital Encounter [facility] PER DI[facility] [address] [facility] [place] [address] Tamra Pringle MD Pyelectasis of fetus on ultrasound; Suspected anomaly not found Discharge Disposition: Home or Self Care 03/17/2025 12:45 PM EDT [facility] [address] [facility] [address] [place] [address] Phillip Mohan MD Pyelectasis of [...] 2019 TDAP/TD VACCINES (1 - Tdap) 2022 PAP SMEAR 2024 ANNUAL PHYSICAL 01/22/2025 CHLAMYDIA SCREENING 01/22/2025 HEPATITIS C SCREENING 01/22/2025 COVID-19 Vaccine (1 - 2023-2 5 season) 2025 INFLUENZA VACCINE 06/17/2025 MENINGOCOCCAL VACCINE Aged Out No riky pb eligible based on patient's age to complete this topic Pneumococcal Vaccine 0-49 Aged Out No longer eligible based on patient's age to complete this topic RSV Vaccine - Adults (No Dos es Required) Completed Procedures Procedure Name Priority Date/Time Associated Diagnosis Comments [facility] Routine 03/17/2025 1:35 PM EDT Pyelectasis of fetus on ultrasound Suspected anomaly not found from Last 3 Months Results * [facility] (03/17/2025 1:35 PM EDT) Anatomical Region Laterality Modality Ultrasound 03/17/2025 1:10 PM EDT Narrative 03/17/2025 1:38 PM EDT PAT NAME: TED OCONNOR MED REC#: [id number] DA: [id number] PAT GEND: F PAT TYPE: O EXAM DAI: [id number] REF PHYS YOU MONTEMAYOR Comparison Studies The [...] EFW (oz) 10 oz EFW by: Hadlock (AAR-YM-AS-FL) Extended Cav. septi pel. tr 6.4 mm Wind Plant Manager 4.7 mm CM 5.5 mm 18% Nicolaides [...] Normal Heart / Thorax 3-vessel view: Normal 3-fdokxn-dspptpy view: normal Cord insertion: Normal Bladder: Appears [...] up as clinically indicated. Coding ======= Description: 33495-10 Follow Up Tire Fabricator: Tori Palencia RDMS Physician: Phillip Mohan MD, FACOG Electronically signed by: Phillip Mohan MD, FACOG at: 13:38 Procedure Note Phillip Mohan MD - 03/17/2025 PAT NAME: TED OCONNOR MED REC#: [id number] DA: 2005 PAT GEND: F PAT TYPE: O EXAM DAI: [id number] REF PHYS YOU MONTEMAYOR Comparison Studies The findings of this study are compared to the prior ultrasound studydated 02/11/25 Patient Status Outpatient Indication ======== Concern for echogenic area in stomach. EIF. Bilateral RPD. Maternal Assessment Jkpkbr315 cm Height (ft)5 ft Height (in)2 in Vejpgq33 kg Weight (lb)124 lb BMI22.82 kg/m Method ======= Transabdominal ultrasound examination ========= [place] . Number of fetuses: 1 Dating ====== Method of dating:based on stated JACOB GA by prior [id number] w + 6 d JACOB by prior assessment:06/10/2025 Ultrasound examination on:03/17/2025 GA by U/S based upon:AC, BPD, Femur, HC GA by U/S28 w + 5 d JACOB by U/S:06/04/2025 Previous dating:based on stated JACOB, selected on 02/11/2025 Agreed JACOB of previous datin06/10/2025 Assigned:based on stated JACOB, selected on 03/17/2025 Assigned GA27 w + 6 d Assigned JACOB:06/10/2025 d Biometry Standard BPD72.7 mm 29w 1d 80% Hadlock OFD98.3 mm 31w 5d >99% Grzegorz HC273.2 mm 29w 6d 80% Hadlock Cerebellum tr33.3 mm 28w 1d 64% Hill AC237.5 mm 28w 0d 48% Hadlock Femur52.4 mm 27w 6d 36% Hadlock HC / AC1.15 EFW1,197 g 27w 6d 52% Hadlock EFW (lb)2 lb EFW (oz)10 oz EFW by:Hadlock (XDH-NP-XT-FL) Extended Cav. septi pel. tr6.4 mm Vp4.7 mm CM5.5 mm 18% Nicolaides Head / Face / Neck Cephalic index0.74 8% Nicolaides Extremities / Bony Struc FL / BPD0.72 FL / HC0.19 FL / AC0.22 Other Structures LXB802 bpm General Evaluation Cardiac activity present. FHR [...] LVOT view:Normal Heart / Thorax 3-vessel view:Normal 6-mukupw-tafppwx view:normal Cord insertion:Normal Bladder:Appears normal Abdomen Stomach:hyperechoic [...] Follow up as clinically indicated. Coding ======= Description:22568-70 Follow Up Tire Fabricator: Tori Palencia RDMS Physician: Phillip Mohan MD, FACOG Electronically signed by: Phillip Mohan MD, FACOG at: 13:38 us Tamra Pringle MD IMG US ORDERABLES Final Res ult from Last 3 Months Insurance [facility] PPO [employer] MEDICAID Care Teams Aurist Relationship Specialty Start Date End Date Provider, No Known [facility] [place] [address] PCP - General 01/22/25
--- NOTE | 2025-05-28 12:30 | US_ITS ---
PROCEDURE: US OB BIOPHYSICAL PROFILE CLINICAL INDICATION: US OB BPP/Growth/SD Ratio with RUBA-SGA COMPARISON: US US OB TRANSVAGINAL from 10/04/2024 US US OB /MATERNAL DETAIL from 01/21/2025 FINDINGS: Transabdominal sonographic images of the uterus were obtained. From her established due date she is 38weeks 1day. The following parameters are obtained: Viable Fetus in the cephalic presentation with a right lateral placenta grade 3. Average ultrasound age is 36weeks 6days Estimated weight 2,776g Cervix measures 3.78 cm in length Measurements: heart Rate = 135bpm Average ultrasound age 36 weeks 6 days Estimated weight 2,776 grams, 6 lb 2 oz BPD = 38weeks 2days, 76 percentile HC = 38weeks 1day, 28 percentile AC = 35weeks 1day, 3 percentile FL = 35weeks 5days, 5 percentile HC/AC is 1.07 FL/BPD is 0.74 FL/AC is 0.22 12 percentile Amniotic fluid index: 11.0 cm, MVP 4.49 cm Qualitative AFV:2 Breathing movements: 2 Gross Body Movements: 2 Tone: 2 Biophysical profile score: 8 Doppler evaluation of the umbilical artery: SD ratio: 2.2-2.31 normal Resistive index: 0.57 No obvious anomalies evident.Profile, stomach, bladder, four-chamber heart, three-vessel cord appear normal. There is unilateral renal pelvis dilation measuring 9.2 mm. IMPRESSION: 1. Viable fetus in the cephalic presentation with a right lateral placenta grade 3. 2. The fluid is within normal limits with an amniotic fluid index 11.0 cm, MVP 4.49 cm. 3. Biophysical profile is 8/8 with good breathing movement and movement seen. 4. S/D ratio is normal 2.2-2.31. 5. There has been good interval growth with the fetus currently 12th percentile. The abdominal circumference is 2 weeks behind. 6. There is unilateral renal pelvis dilation measuring 9.2 mm and suggest follow-up post with the system controller. 7. The rest of the limited anatomical scan appears normal. Dictated by: Quincy Mcmillan MD 05/29/2025 09:06 Quincy Mcmillan MD in OV 05/29/2025 09:06
== END 2025-05-28 23:59 | disposition home or self-care (01) ==
LOC: RAD 12:13
PROVIDERS: Visit Provider Obstetrics & Gynecology
DX: O35.EXX0 Maternal care for other (suspected) fetal abnormality and damage, fetal genitourinary anomalies, not applicable or unspecified (principal); O36.5930 Maternal care for other known or suspected poor fetal growth, third trimester, not applicable or unspecified; Z36.2 Encounter for other antenatal screening follow-up; Z3A.38 38 weeks gestation of pregnancy
CPT/HCPCS: 76816; 76819; 76820

== ENCOUNTER 2025-05-29 19:00 | Inpatient (IN) | payer BC, MEDICAID, SELFPAY ==
--- OUTSIDE RECORDS SUMMARY | 2025-05-29 18:54 | XMS_ITS | Clinical Summary ---
Author Organization [facility] Address [address] [place] [id number] Care Team Providers Care Semiconductor Packages Tester Name Role Phone Provider, No Known Primary [...] will need to be followed by a supervisor unloading or pediatric urologist after delivery if the [...] - 03/17/2025 11:59 PM EDT Hospital Encounter [facility] PER [facility] [address] [facility] [place] [address] Tamra Pringle MD Pyelectasis of fetus on ultrasound; Suspected anomaly not found Discharge Disposition: Home or Self Care 03/17/2025 12:45 PM EDT Office Visit [facility] [address] [facility] [address] [place] [address] Phillip Mohan MD Pyelectasis of [...] Procedure Name Priority Date/Time Associated Diagnosis Comments [facility] Routine 03/17/2025 1:35 PM EDT Pyelectasis of fetus on ultrasound Suspected anomaly not found from Last 3 Months Results * [facility] (03/17/2025 1:35 PM EDT) Anatomical Region Laterality Modality Ultrasound 03/17/2025 1:10 PM EDT Narrative 03/17/2025 1:38 PM EDT PAT NAME: TED OCONNOR MED REC#: [id number] DA: [id number] PAT GEND: F PAT TYPE: O EXAM DAI: [id number] REF PHYS YOU MONTEMAYOR Comparison Studies The [...] EFW (oz) 10 oz EFW by: Hadlock (BAU-QV-GT-FL) Extended Cav. septi pel. tr 6.4 mm Manager Creative Services 4.7 mm CM 5.5 mm 18% Nicolaides [...] Normal Heart / Thorax 3-vessel view: Normal 1-nxahan-vycfnak view: normal Cord insertion: Normal Bladder: Appears [...] up as clinically indicated. Coding ======= Description: 15003-57 Follow Up Log Deckman: Tori Palencia RDMS Physician: Phillip Mohan MD, FACOG Electronically signed by: Phillip Mohan MD, FACOG at: 13:38 Procedure Note Phillip Mohan MD - 03/17/2025 PAT NAME: TED OCONNOR MED REC#: [id number] DA: 2005 PAT GEND: F PAT TYPE: O EXAM DAI: [id number] REF PHYS YOU MONTEMAYOR Comparison Studies The findings of this study are compared to the prior ultrasound studydated 02/11/25 Patient Status Outpatient Indication ======== Concern for echogenic area in stomach. EIF. Bilateral RPD. Maternal Assessment Vduhpm158 cm Height (ft)5 ft Height (in)2 in Tjcgmp03 kg Weight (lb)124 lb BMI22.82 kg/m Method ======= Transabdominal ultrasound examination ========= [place] . Number of fetuses: 1 Dating ====== Method of dating:based on stated JACOB GA by prior uqzknvbodo17 w + 6 d JACOB by prior assessment:06/10/2025 Ultrasound examination on:03/17/2025 GA by U/S based upon:AC, BPD, Femur, HC GA by U/S28 w + 5 d JACOB by U/S:06/04/2025 Previous dating:based on stated JACOB, selected on 02/11/2025 Agreed JACOB of previous datin06/10/2025 Assigned:based on stated JACOB, selected on 03/17/2025 Assigned GA27 w + 6 d Assigned JACOB:06/10/2025 ovyrve366 d Biometry Standard BPD72.7 mm 29w 1d 80% Hadlock OFD98.3 mm 31w 5d >99% Grzegorz HC273.2 mm 29w 6d 80% Hadlock Cerebellum tr33.3 mm 28w 1d 64% Hill AC237.5 mm 28w 0d 48% Hadlock Femur52.4 mm 27w 6d 36% Hadlock HC / AC1.15 EFW1,197 g 27w 6d 52% Hadlock EFW (lb)2 lb EFW (oz)10 oz EFW by:Hadlock (HFJ-US-NI-FL) Extended Cav. septi pel. tr6.4 mm Vp4.7 mm CM5.5 mm 18% Nicolaides Head / Face / Neck Cephalic index0.74 8% Nicolaides Extremities / Bony Struc FL / BPD0.72 FL / HC0.19 FL / AC0.22 Other Structures YTR395 bpm General Evaluation Cardiac activity present. FHR [...] LVOT view:Normal Heart / Thorax 3-vessel view:Normal 6-zolfyg-blupoeo view:normal Cord insertion:Normal Bladder:Appears normal Abdomen Stomach:hyperechoic [...] Follow up as clinically indicated. Coding ======= Description:78327-17 Follow Up Log Deckman: Tori Palencia RDMS Physician: Phillip Mohan MD, FACOG Electronically signed by: Phillip Mohan MD, FACOG at: 13:38 us Tamra Pringle MD IMG US ORDERABLES Final Res ult from Last 3 Months Insurance [facility] PPO [employer] MEDICAID Care Teams Semiconductor Packages Tester Relationship Specialty Start Date End Date Provider, No Known [facility] [place] [address] PCP - General 01/22/25
[2025-05-29 19:00] VITALS: BMI 25.2
[2025-05-29 19:17] VITALS: BP 132/84; PULSE 115; RESP 18; TEMP 36.9; O2SAT 100; BMI 25.4
[2025-05-29 19:20] VITALS: BP 132/84; PULSE 115; RESP 16; TEMP 36.9; O2SAT 98
[2025-05-29 19:52] LABS: Hematocrit 29.9 % (37.0-47.0); Hemoglobin 9.5 g/dL (12.2-16.2); Immature Granulocytes % 0.3 %; Mean Corpuscular HGB Conc 31.8 g/dL (31.8-35.4); Mean Corpuscular Hemoglobin 23.7 pg (27.0-31.2); Mean Corpuscular Volume 74.6 fl (81-99); Nucleated Red Blood Cells % 0 %; Platelet Count 242 K/mm3 (142-424); Red Blood Count 4.01 M/mm3 (4.20-5.40); Red Cell Distribution Width-SD 43.8 fL; White Blood Count 9.3 K/mm3 (4.8-10.8)
[2025-05-29 20:22] LABS: Microscopic, Urine URINE MICROSCOPIC (MICROSCOPIC)
[2025-05-29 20:29] LABS: Bilirubin,Urine Negative (Negative); Color,Urine YELLOW (Yellow); Glucose,Urine (UA) TRACE (Negative); Ketones,Urine Negative (Negative); Leukocyte Esterase,Urine Negative (Negative); PH,Urine 6.0 (5.0-8.5); Protein,Urine TRACE (Negative); Specific Gravity, Urine 1.025 (1.005-1.030); Urobilinogen,Urine 0.2 EU/dl (0.2)
[2025-05-29 20:53] LABS: Bacteria,Urine 4+ /lpf; Mucus,Urine 4+ /lpf; Squamous Epithelial Cell,Urine 20-50 #/hpf (0-5)
[2025-05-30 01:00] VITALS: BP 127/63; PULSE 95; RESP 18
[2025-05-30 04:16] VITALS: BP 126/67; PULSE 85; RESP 16; TEMP 37.1; O2SAT 98
[2025-05-30 04:50] VITALS: BP 137/84; PULSE 108; RESP 16; TEMP 36.7; O2SAT 99
[2025-05-30] MEDS: ACETAMINOPHEN 500MG TAB 1000 MG PO ×2 (06:14→17:34)
[2025-05-30] MEDS: ALUMINUM/MAGNESIUM/SIMETHICONE 30ML UDC 30 ML PO (08:43)
[2025-05-30] MEDS: ONDANSETRON 4MG/2ML VIAL 4 MG IV (09:46)
[2025-05-30] MEDS: LACTATED RINGERS 1000ML 1,000 ML 999 ML IV (11:00)
--- NOTE | 2025-05-30 11:20 | HMH.PHAINT1 ---
Pharmacy Intervention Comments: MEDICATION RECONCILIATION COMPLETE USING EXTERNAL PHARMACY FILL HISTORY AND RECENT MD OFFICE VISIT NOTE
--- NOTE | 2025-05-30 11:48 | P.PNANES_ITS ---
[facility] Disclaimer: The information contained in this section may have been updated after the patient was seen, as this information can be updated by other users. Medical History Heartburn during Vomiting during , antepartum Surgical History No significant past surgical history Family History Other No significant family history Social History Smoking Status: Never smoker alcohol intake: never substance use type: denies use current occupational status: unemployed Travel in the last 8 weeks?: None [facility] Anesthesia Checklist Patient Identification Patient Identification: Arm Band and Verbal (Name & ) Structural Data Admitted From: Inpatient Planned Operative Procedure/s: Labor Epidural Consent for Planned Operative Procedure(s) Verified: Yes Verified Documents: Surgical Consent NPO Status Verified Time NPO: 00:00 Chart Verification Results Verified: CBC and BMP Additional verifications Patient : Yes Anesthesia Reactions: No Airway Assessment Mallampati Score:: Class II C-Spine Mobility Assessed: No TMJ Mobility Assessed: No Dentition: Good Dentition Neurological Assessment Level of Consciousness: Awake, Alert and Appropriate Hx Seizures: No Numbness or tingling in extremities: No Anesthesia Plan Anesthesia Risk discussed: Yes Anesthesia Plan: Verified ASA Class: II Anesthesia Type: Epidural
--- NOTE | 2025-05-30 11:55 | EXP.HP ---
History of Present Illness *Admission Date: 05/30/25 *Reason for visit:: Induction *History of present illness: Jacqueline Coreas is a 19-year-old at 38 weeks and 1 days gestation who presented to labor and delivery for medically indicated induction of labor secondary to growth restriction. Her has been uncomplicated. On presentation patient endorsed good movement and denies any leakage of fluid or vaginal bleeding. O+, antibody negative, rubella immune, hepatitis B negative, hepatitis C negative, RPR negative, HIV negative 1 hour GTT: 125 GBS negative Pt was referred to [facility] on 01/23/25 seocndary to a concern for echogenic area in the stomach, EIF, bilateral renal pelvis dilation Ultrasound at [facility] on 02/03/2025: No structural abnormalities or other small markers of aneuploidy Ultrasound at [facility] on 03/17/2025: EFW: 1997 g, 2 pounds 10 ounces, 52nd percentile. BPD: 80%, HC: 80%, AC: 48%, FL: 36% all reported anatomy was normal we did not comment on any systemic EIF Ultrasound at [facility] on 09/27/2024: EFW: 2776 g, 6 pounds 2 ounces, BPD: 76%, HC: 20%, AC: 3%, FL: 5%. Overall: 12%. BPP: 8/8. Normal SD ratio. MVP: 4.49 cm, RUBA: 11. Unilateral renal pelvis dilation measuring 9.2 mm PFSH PFSH Disclaimer: The information contained in this section may have been updated after the patient was seen, as this information can be updated by other users. Medical History Heartburn during Vomiting during , antepartum Surgical History No significant past surgical history Family History Other No significant family history Social History (Updated 05/30/25 @ 11:50 by Rommel Cabrales CRNA) Smoking Status: Never smoker alcohol intake: never substance use type: denies use current occupational status: unemployed Travel in the last 8 weeks?: None Have you lived/traveled outside [place] in past 30 days?: No Contact w/someone who lives/traveled outside US past 30 days?: No Exposure to someone with infectious disease in past 14 days?: No Do you have a fever (greater than 100.4 F or 38 C)?: No Have you tested positive for COVID-19?: No Exposed to someone with COVID-19 in past 14 days?: No Do you have a sore throat?: No Do you have a cough?: No Do you have any weakness?: No Do you have any diarrhea?: No Are you experiencing any unusual bleeding?: No Do you have any muscle aches/pain?: No Do you have any abdominal pain?: No Are you experiencing loss of taste or smell?: No Other Medical History Have you received the Flu Vaccine for this season: No Have you received the Pneumonia Vaccine: No Review of Systems Review of Systems Review of systems (narrative): Review of Systems Constitutional: Denies fever, chills, and sweats Eyes: Denies vision change/ pain Respiratory: Denies cough and shortness of breath Cardiovascular: Denies chest pain and lightheadedness Gastrointestinal: Admits abdominal pain with contractions. Denies nausea, vomiting. Genitourinary: Denies dysuria and incontinence Musculoskeletal: Denies shoulder pain and back pain Neurological: Denies change in speech or headaches Meds Home Medications and Allergies Home Medications ?Medication ?Instructions ?Recorded ?Confirmed ?Type vits no.126-ferrous fum 1 tab PO DAILY 10/20/24 05/30/25 History 28 mg iron-folic acid 800 mcg tablet (Classic ) famotidine 20 mg tablet 20 mg PO BID #30 tabs 02/13/25 05/30/25 Rx ferrous sulfate 325 mg (65 mg 325 mg PO DAILY #30 tabs 03/16/25 05/30/25 Rx iron) tablet pantoprazole 40 mg tablet,delayed 40 mg PO DAILY #30 tabs 04/01/25 05/30/25 Rx release (Protonix) ondansetron 4 mg disintegrating 4 mg PO Q6HP PRN Nausea And 05/30/25 05/30/25 History tablet Vomiting New Prescriptions to Start Prescriptions: Allergies Allergy/AdvReac Type Severity Reaction Status Date / Time No Known Allergies Allergy Verified 05/28/25 11:18 Exam Data for Last 24 hours Vital signs and Labs for Last 24 Hours: Temp Pulse Resp BP Pulse Ox O2 Del Method 98.1 F 108 H 16 137/84 99 Room Air 05/30/25 04:50 05/30/25 04:50 05/30/25 04:50 05/30/25 04:50 05/30/25 04:50 05/30/25 04:50 Laboratory Results - last 24 hr 05/29/25 19:00: Urine Color Yellow, Urine Appearance Sl cloudy, Urine pH 6.0, Ur Specific [place] 1.025, Urine Protein Trace, Urine Glucose (UA) Trace, Urine Ketones Negative, Urine Blood Negative, Urine Nitrate Negative, Urine Bilirubin Negative, Urine Urobilinogen 0.2, Ur Leukocyte Esterase Negative, Urine RBC 5-10, Urine WBC 10-20, Ur Squamous Epith Cells 20-50, Urine Bacteria 4+, Urine Mucus 4+ 05/29/25 19:38: WBC 9.3, RBC 4.01 L, Hgb 9.5 L, Hct 29.9 L, MCV 74.6 L, MCH 23.7 L, MCHC 31.8, RDW 16.0, Plt Count 242, MPV 10.4, Neut % (Auto) 77.9, Lymph % (Auto) 16.3, Davidson % (Auto) 4.2, Eos % (Auto) 1.0, Baso % (Auto) 0.3, Neut # (Auto) 7.3, Lymph # (Auto) 1.5, Davidson # (Auto) 0.4, Eos # (Auto) 0.1, Baso # (Auto) 0.0, Blood Type O Positive, Antibody Screen Negative, Crossmatch (AHG) See Detail I & O for Last 24 hours: Intake & Output 05/27/25 05/28/25 05/29/25 05/30/25 23:59 23:59 23:59 23:59 Weight 137 lb 15.797 oz Narrative: General: patient is alert oriented in no acute distress and responds appropriately to questions. HEENT: NCAT, EOMI, moist mucous membranes, neck supple with full ROM Cardiovascular: RRR +S1/S2, no murmurs or rubs Pulmonary: Clear to auscultation bilaterally, nonlabored breathing, symmetric chest rise Abdominal: Gravid abdomen appropriate for gestation. No guarding, rebound, or tenderness noted. Extremities: trace edema, no tenderness or cyanosis noted Skin: Normal turgor, intact, warm. Negative for erythema, pallor, petechia, or lesions Neurologic: Negative for sensory or motor deficit Psychiatric: Normal affect, normal thought process, good judgment and insight, no depression or anxious mood appreciated. *Routine HEENT Exam Head: Present normocephalic and atraumatic Eye: Present EOMI, PERRL and normal accommodation; Absent conjunctival icterus, scleral injection, nystagmus or exophthalmos ENT: Present mucous membranes moist *Routine Respiratory Exam Respiratory: Present CTA bilaterally, normal respiratory effort, able to speak in complete sentences and symmetric chest movement; Absent accessory muscle use, decreased breath sounds, rales, respiratory distress, wheezes, distant breath sounds or diminished air movement *Routine Cardiovascular Exam Cardiovascular: Present RRR, Normal S1 and Normal S2; Absent murmur or gallop *Routine Abdominal Exam Abdominal: Present soft and normoactive bowel sounds; Absent tenderness, distended, rebound or guarding *Routine Rectal Exam Rectal:: deferred *Routine Genitalia Exam Genitalia:: normal female Assessment and Plan *Assessment and plan (1) Heartburn during : Status: Acute Qualifiers: Trimester: second trimester Qualified Code(s): O26.892 - Other specified related conditions, second trimester; R12 - Heartburn Category: Medical Code(s): O26.899 - Other specified related conditions, unspecified trimester; R12 - Heartburn (2) Vomiting during , antepartum: Status: Acute Category: Medical Code(s): O21.9 - Vomiting of , unspecified (3) Intrauterine growth restriction (IUGR) affecting care of mother: Status: Acute Category: Medical Code(s): O36.5990 - Maternal care for other known or suspected poor growth, unspecified trimester, not applicable or unspecified (4) Asymmetric IUGR affecting , antepartum: Status: Acute Category: Medical Code(s): O36.5990 - Maternal care for other known or suspected poor growth, unspecified trimester, not applicable or unspecified (5) Encounter for induction of labor: Status: Acute Category: Medical Code(s): Z34.90 - Encounter for supervision of normal , unspecified, unspecified trimester Plan - Monitor vitals - Admit to L&D for induction of labor - Plan for induction with Pitocin, per protocol - External FHR and TOCO monitor - Exam on admission: /-3 - GBS neg/ Blood type: O+ - Hemoglobin: 9.5, Plt: 242 - Plan for epidural anesthesia - Anticipate vaginal delivery of male #Anemia -Will follow vitals and manage as needed
--- NOTE | 2025-05-30 14:02 | EXP.LABOR.NO ---
Labor Note Subjective: Date: 05/30/25 Time: 14:02 regular contraction Objective: NST:: Reactive Contractions:: every 2-3 minutes Cervical Dilation:: 9-10 Effacement:: 100% Station: +2 Membranes: artificially ruptured Fetus: Monitoring?: Yes monitoring type:: External Assessment: Labor progressing?: Yes Plan: Anesthesia for epidural?: Yes Plan for ?: No Start pushing?: Yes
[2025-05-30 14:10] LABS: RPR W/RFX Titers Nonreactive (Nonreactive)
[2025-05-30] MEDS: OXYTOCIN/RINGERS LACTATE 30 UNITS/500 ML BAG IV (14:20)
[2025-05-30] MEDS: OXYTOCIN/RINGERS LACTATE 30 UNITS/500 ML BAG 40 UNITS IV (14:40)
--- NOTE | 2025-05-30 14:57 | EXP.DN ---
Delivery Note Delivery Date:: 05/30/25 Delivery Time:: 14:35 Anesthesia Type: Epidural Was labor medically induced?: Yes Induction method: AROM Gestational age (weeks): 38 Infant delivered prior to 39 weeks?: Yes Justification for early elective delivery:: IUGR Gender: Male at 1 minute: 6 at 5 minutes: 8 Delivery Procedure:: Preoperative diagnosis: 1. at 38w3d completed this weeks gestation, vertex 2. Rh positive 3. GBS negative 4. Asymmetric Growth Restriction Postoperative diagnosis: 1. at 38w3d completed this weeks gestation, vertex 2. Rh positive 3. GBS negative 4. Asymmetric Growth Restriction EBL: 300mL Specimen: 1. Cord blood Findings: 1. Liveborn viable male infant. Apgars 6/8 at 1 and 5 minutes respectively. Weight pending at time of dictation 2. Second degree midline laceration and left labial laceration Complications: None Procedure: Nonoperative spontaneous vaginal delivery with a left labial and 2nd degree midline Jacqueline Oconnor is a pleasant 19yo who was brought in for induction after IUGR was identified. She was noris on her on and making progress. She had AROM around 830 this morning and continued to make cervical change on her own. She progressed to complete and begin pushing. She received an epidural for anesthesia. nuchal compound presentation with the posterior right arm sumersault The infant was noted to be in RHIANNA position. With effective maternal pushing there was a nonoperative spontaneous vaginal delivery at 1435. There was a nuchal cord that was required to be sumersaulted through. The presentation was compound with the posterior right arm that delivered first, followed by the anterior shoulder. The body and lower extremities delivered without difficulty. The was bulb suctioned and was crying immediately following delivery, however, tone was poor. The was placed on the maternal abdomen and greater than two minutes were appreciated for delayed cord clamping. The umbilical cord was doubly clamped and cut. Cord blood was collected and sent for routine testing. The placenta delivered with cord traction and suprapubic contertraction. Pitocin was started. The uterus was firm and bleeding was minimal. The perineum, vaginal shi, cervix, and paraurethral area were inspected thoroughly and noted to have a second degree laceration as well as a left labial. This was repaired in the normal fashion with 2-0 vicryl. The patient tolerated the delivery well. All counts were correct by nursing. Mother and were doing well and bonding upon my leaving the delivery room. Laceration:: labial Placental Delivery Description: Spontaneous
[2025-05-30] MEDS: IBUPROFEN 400 MG TABLET 800 MG PO (17:34)
[2025-05-30] MEDS: BENZOCAINE-MENTHOL SPRAY 56GM CAN TP (17:35)
[2025-05-30] MEDS: WITCH HAZEL 40 PADS/BOX 1 EACH TP (17:35)
[2025-05-30 20:14] VITALS: BP 119/59; PULSE 83; RESP 18; TEMP 37; O2SAT 99
[2025-05-31] MEDS: IBUPROFEN 400 MG TABLET 800 MG PO ×2 (03:04→15:04)
[2025-05-31] MEDS: ACETAMINOPHEN 500MG TAB 1000 MG PO ×3 (03:05→15:04)
[2025-05-31] MEDS: FAMOTIDINE 20MG TABLET 20 MG PO (04:40)
[2025-05-31 07:43] LABS: Hematocrit 24.1 % (37.0-47.0); Hemoglobin 7.5 g/dL (12.2-16.2); Immature Granulocytes % 0.7 %; Mean Corpuscular HGB Conc 31.1 g/dL (31.8-35.4); Mean Corpuscular Hemoglobin 23.9 pg (27.0-31.2); Mean Corpuscular Volume 76.8 fl (81-99); Nucleated Red Blood Cells % 0 %; Platelet Count 219 K/mm3 (142-424); Red Blood Count 3.14 M/mm3 (4.20-5.40); Red Cell Distribution Width-SD 45.7 fL; White Blood Count 11.0 K/mm3 (4.8-10.8)
[2025-05-31 08:09] VITALS: BP 134/60; PULSE 92; RESP 18; TEMP 36.9; O2SAT 98
[2025-05-31] MEDS: PANTOPRAZOLE 40MG TABLET 40 MG PO (08:50)
[2025-05-31] MEDS: IRON SUCROSE COMPLEX 200 MG in 0.9 % SODIUM CHLORIDE 100 ML 220 MG IV (08:50)
--- NOTE | 2025-05-31 18:59 | EXP.PN ---
Subjective *Date: 05/31/25 *Time: 18:59 Interval history: Jacqueline Coreas is a 19yo PPD#1 following a normal spontaneous vaginal delivery at 38 weeks and 3 days gestation. was complicated by FGR. Routine delivery and course. PP anemia noted, IV iron given. She is doing well, sitting up in bed -Reports pain is well-controlled -Reports she is tolerating p.o. without nausea or vomiting. -Reports her lochia is scant. -Undecided contraception -She is breast-feeding her male infant -Ambulating, voiding difficulty or dysuria. Denies chest pain shortness of breath or pain in her legs. No further complaints at this time. Exam Data for Last 24 hours Vital signs and Labs for Last 24 Hours: Temp Pulse Resp BP Pulse Ox O2 Del Method 98.4 F 92 H 18 134/60 98 Room Air 05/31/25 08:09 05/31/25 08:09 05/31/25 08:09 05/31/25 08:09 05/31/25 08:09 05/31/25 08:09 Laboratory Results - last 24 hr 05/31/25 07:20: WBC 11.0 H, RBC 3.14 L, Hgb 7.5 L, Hct 24.1 L, MCV 76.8 L, MCH 23.9 L, MCHC 31.1 L, RDW 16.4, Plt Count 219, MPV 10.6 H, Neut % (Auto) 71.1, Lymph % (Auto) 20.9, [place] % (Auto) 4.4, Eos % (Auto) 2.6, Baso % (Auto) 0.3, Neut # (Auto) 7.8, Lymph # (Auto) 2.3, [place] # (Auto) 0.5, Eos # (Auto) 0.3, Baso # (Auto) 0.0 I & O for Last 24 hours: Intake & Output 05/28/25 05/29/25 05/30/25 05/31/25 23:59 23:59 23:59 23:59 Intake Total 110 / 110 Balance 110 / 110 Weight 137 lb 15.797 oz Microbiology Reports for the Last 24 Hours: Microbiology 05/29/25 19:00 Urine,Clean Catch Urine Culture - Final Multiple organisms, suggests contamination. Narrative: General: patient is alert oriented in no acute distress and responds appropriately to questions. Appears to be in minimal pain. HEENT: NCAT, EOMI, moist mucous membranes, neck supple with full ROM Cardiovascular: RRR +S1/S2, no murmurs or rubs Pulmonary: Clear to auscultation bilaterally, nonlabored breathing, symmetric chest rise Abdominal: Fundus below the umbilicus, firm, and tenderness appropriate for the period. Extremities: trace edema, no tenderness or cyanosis noted Skin: Normal turgor, intact, warm. Negative for erythema, pallor, petechia, or lesions Neurologic: Negative for sensory or motor deficit Psychiatric: Normal affect, normal thought process, good judgment and insight, no depression or anxious mood appreciated. Assessment and Plan *Assessment and plan (1) Heartburn during : Status: Acute Qualifiers: Trimester: second trimester Qualified Code(s): O26.892 - Other specified related conditions, second trimester; R12 - Heartburn Category: Medical Code(s): O26.899 - Other specified related conditions, unspecified trimester; R12 - Heartburn (2) Vomiting during , antepartum: Status: Acute Category: Medical Code(s): O21.9 - Vomiting of , unspecified (3) Intrauterine growth restriction (IUGR) affecting care of mother: Status: Acute Category: Medical Code(s): O36.5990 - Maternal care for other known or suspected poor growth, unspecified trimester, not applicable or unspecified (4) Asymmetric IUGR affecting , antepartum: Status: Acute Category: Medical Code(s): O36.5990 - Maternal care for other known or suspected poor growth, unspecified trimester, not applicable or unspecified (5) Encounter for induction of labor: Status: Acute Category: Medical Code(s): Z34.90 - Encounter for supervision of normal , unspecified, unspecified trimester (6) (normal spontaneous vaginal delivery): Status: Acute Category: Medical Code(s): O80 - Encounter for full-term uncomplicated delivery Plan Stable. PPD#1 s/p -Doing well. VSS. Serial lochia and fundal checks. -Continue with perineal ice packs for discomfort -Hemoglobin: 9.5--> 7.5. IV iron this am. Feeling well. no concerns. VSS - asymptomatic anemia noted. Vitals stable. Continue monitoring. DC with Fe -O+/antibody negative -, male infant -Desires circumcision, consents signed and risks reviewed -Contraception: undecided -Follow-up 2 weeks for routine visit -Dispo: home in 1-3 days pending mother/infant status
[2025-05-31 19:08] VITALS: BP 134/84; PULSE 103; RESP 16; TEMP 36.6; O2SAT 99
[2025-06-01] MEDS: IBUPROFEN 400 MG TABLET 800 MG PO ×2 (00:12→10:28)
[2025-06-01] MEDS: ACETAMINOPHEN 500MG TAB 1000 MG PO ×2 (00:12→10:28)
[2025-06-01 04:30] VITALS: BP 122/85; PULSE 81; RESP 16; TEMP 36.7; O2SAT 99
[2025-06-01 08:10] VITALS: BP 116/74; PULSE 91; RESP 17; TEMP 36.9; O2SAT 100
--- NOTE | 2025-06-01 09:08 | P.DS_ITS ---
General Admission date:: 05/29/25 Discharge date: 06/01/25 HPI HPI HPI: Jacqueline Coreas is a 19-year-old at 38 weeks and 1 days gestation who presented to labor and delivery for medically indicated induction of labor secondary to growth restriction. Her has been uncomplicated. On presentation patient endorsed good movement and denies any leakage of fluid or vaginal bleeding. O+, antibody negative, rubella immune, hepatitis B negative, hepatitis C negative, RPR negative, HIV negative 1 hour GTT: 125 GBS negative Pt was referred to [facility] on 01/23/25 seocndary to a concern for echogenic area in the stomach, EIF, bilateral renal pelvis dilation Ultrasound at [facility] on 02/03/2025: No structural abnormalities or other small markers of aneuploidy Ultrasound at [facility] on 03/17/2025: EFW: 1997 g, 2 pounds 10 ounces, 52nd percentile. BPD: 80%, HC: 80%, AC: 48%, FL: 36% all reported anatomy was normal we did not comment on any systemic EIF Ultrasound at [facility] on 09/27/2024: EFW: 2776 g, 6 pounds 2 ounces, BPD: 76%, HC: 20%, AC: 3%, FL: 5%. Overall: 12%. BPP: 8/8. Normal SD ratio. MVP: 4.49 cm, RUBA: 11. Unilateral renal pelvis dilation measuring 9.2 mm Hospital Course Hospital Course Hospital Course: Jacqueline Coreas is a pleasant 19-year-old G1, P1 day #2 following a normal spontaneous vaginal delivery on 05/30/2025 at 1435. She was brought in for medical induction of labor secondary to growth restriction. She delivered a live viable male at 38 weeks and 3 days gestation. Apgars were 6 and 8 at 1 and 5 minutes respectively. Infant weighed 7 pounds 11 ounces and was down to 7 pounds 3 ounces at discharge. She is breast-feeding and doing well with this She has done well and has remained afebrile with her at her hospitalization. She is eating and drinking and ambulating. Her lochia is normal. She has O Rh+ blood, she is rubella immune and was group B streptococcus negative. She will be discharged home to follow-up with Dr. Harman in 2 weeks time. She will continue with her vitamins and iron. asymptomatic anemia was noted and she received IV iron on day #1. She will take ibuprofen as well. She was given the usual instructions with respect to limiting her activity, driving and sexual activity. She was given instructions with respect to wound care. Her condition on discharge is stable and improved. Exam Data for Last 24 hours Vital signs and Labs for Last 24 Hours: Temp Pulse Resp BP Pulse Ox O2 Del Method 98.1 F 81 16 122/85 99 Room Air 06/01/25 04:30 06/01/25 04:30 06/01/25 04:30 06/01/25 04:30 06/01/25 04:30 06/01/25 04:30 I & O for Last 24 hours: Intake & Output 05/29/25 05/30/25 05/31/25 06/01/25 23:59 23:59 23:59 23:59 Intake Total 110 / 110 Balance 110 / 110 Weight 137 lb 15.797 oz Microbiology Reports for the Last 24 Hours: Microbiology 05/29/25 19:00 Urine,Clean Catch Urine Culture - Final Multiple organisms, suggests contamination. Narrative: General: patient is alert oriented in no acute distress and responds appropriately to questions. Appears to be in minimal pain. HEENT: NCAT, EOMI, moist mucous membranes, neck supple with full ROM Cardiovascular: RRR +S1/S2, no murmurs or rubs Pulmonary: Clear to auscultation bilaterally, nonlabored breathing, symmetric chest rise Abdominal: Fundus below the umbilicus, firm, and tenderness appropriate for the period. Extremities: trace edema, no tenderness or cyanosis noted Skin: Normal turgor, intact, warm. Negative for erythema, pallor, petechia, or lesions Neurologic: Negative for sensory or motor deficit Psychiatric: Normal affect, normal thought process, good judgment and insight, no depression or anxious mood appreciated. DS: Diagnosis Discharge Diagnosis (1) Heartburn during : Status: Acute Code(s): O26.899 - Other specified related conditions, unspecified trimester; R12 - Heartburn Qualifiers: Trimester: second trimester Qualified Code(s): O26.892 - Other specified related conditions, second trimester; R12 - Heartburn (2) Vomiting during , antepartum: Status: Acute Code(s): O21.9 - Vomiting of , unspecified (3) Intrauterine growth restriction (IUGR) affecting care of mother: Status: Acute Code(s): O36.5990 - Maternal care for other known or suspected poor growth, unspecified trimester, not applicable or unspecified (4) Asymmetric IUGR affecting , antepartum: Status: Acute Code(s): O36.5990 - Maternal care for other known or suspected poor growth, unspecified trimester, not applicable or unspecified (5) Encounter for induction of labor: Status: Acute Code(s): Z34.90 - Encounter for supervision of normal , unspecified, unspecified trimester (6) (normal spontaneous vaginal delivery): Status: Acute Code(s): O80 - Encounter for full-term uncomplicated delivery Meds Home Medications and Allergies Home Medications ?Medication ?Instructions ?Recorded ?Confirmed ?Type vits no.126-ferrous fum 1 tab PO DAILY 05/30/25 History 28 mg iron-folic acid 800 mcg tablet (Classic ) famotidine 20 mg tablet 20 mg PO BID #30 tabs 05/30/25 Rx pantoprazole 40 mg tablet,delayed 40 mg PO DAILY #30 t abs 04/01/25 05/30/25 Rx release (Protonix) acetaminophen 500 mg tablet 500 mg PO Q6H PRN fever or pain 06/01/25 Rx #30 tabs ferrous sulfate 325 mg (65 mg 325 mg PO DAILY #30 tabs 06/01/25 Rx iron) tablet ibuprofen 800 mg tablet 800 mg PO Q8H PRN pain #60 t abs 06/01/25 Rx New Prescriptions to Start Prescriptions: acetaminophen Melissa Castro ferrous sulfate Melissa Castro ibuprofen Melissa Castro Allergies Allergy/AdvReac Type Severity Reaction Status Date / Time No Known Allergies Allergy Verified 05/28/25 11:18 Discharge Plan Disposition Patient Disposition: Home, Self-Care Discharge Order Discharge Orders: Discharge Order (Routine); Ordered 06/01/25 Ordered By: Melissa Castro Follow up Plan Follow up with: Meka Harman DO [Staff Physician, DISABILITY REPRESENTATIVE] - Enter time for follow up Prescriptions/Medication Reconciliation: New acetaminophen 500 mg tablet 500 mg PO Q6H PRN (Reason: fever or pain) Qty: 30 3RF ibuprofen 800 mg tablet 800 mg PO Q8H PRN (Reason: pain) Qty: 60 2RF Continued Classic 28 mg iron- 800 mcg tablet 1 tab PO DAILY famotidine 20 mg tablet 20 mg PO BID Qty: 30 3RF pantoprazole [Protonix] 40 mg tablet,delayed release (DR/EC) 40 mg PO DAILY Qty: 30 3RF ferrous sulfate 325 mg (65 mg iron) tablet 325 mg PO DAILY Qty: 30 3RF Discontinued ondansetron 4 mg tablet,disintegrating 4 mg PO Q6HP PRN (Reason: Nausea And Vomiting) Problem Reconciliation Problems Reviewed?: Yes Patient Discharge Instructions ACTIVITY: Continue current activity DIET: regular diet Additional Instructions: Congratulations on the delivery of your sweet baby boy. It is my privilege to be a part of your DISABILITY REPRESENTATIVE team and I am so thankful I could be a part of your special day. Discharge: -Take 800 mg Ibuprofen every 8 hours as needed for pain. You can also take 500- 1000 mg of Tylenol in between doses, every 6-8 hours. -Colace can be taken 1-2 times per day as you need to soften your stool. Make sure to drink at least 8 cups of water per day. -Iron supplements can make you constipated. You can take iron tablets every other day if constipation is too bad. -Nothing in the vagina for 6 weeks - no intercourse, douching, tampons. No tub baths or swimming pools. -Do not lift greater than 20pounds for 2 weeks, this is the equivalent of 2 gallons of milk. -Reasons to return to L&D or call On-Call doctor - fever (greater than 100.4) - heavy vaginal bleeding (soaking through 1 pad in less than 2 hours or passing clots that are egg sized) - vaginal discharge (malodorous and/or purulent) - severe headaches, leg tenderness/edema, or any other symptoms that warrant immediate medical attention. depression/blues - Normal to feel anxious/overwhelmed for first 2 weeks - Talk to your doctor if: anxiety lasts over 2 weeks, trouble bonding with baby, withdrawing from other family members, thoughts of harming yourself or others Blood pressure and preeclampsia instructions - Please call if greater than 2 values are higher than: 150 systolic (the top number) or 100 diastolic (the bottom number). - Please go to the emergency room or labor and delivery triage if any value is higher than: 160 systolic (the top number) or 110 diastolic (the bottom number). - Please call if unrelenting headache (does not go away with rest or Tylenol or ibuprofen), changes in vision (spots, floaters, flashes of light), chest pain, shortness of breath, or right upper quadrant (liver) abdominal pain. Melissa Castro DO [facility] [phone] *Nothing in the Vagina for 6 weeks* *No strenuous activity* *No heavy lifting* *No tub baths until okay's by MD* Patient Instructions: Depression, Hemorrhage, DI for Labor and Delivery, Vaginal , DI for Pre-eclampsia, [facility] Post Discharge Instructions Print Language: Mauritanian Providers Primary Care Provider: Provider,Referral Admit Provider: Melissa Castro Attending Provider: Melissa Castro
[2025-06-01] MEDS: SENNA 8.6MG TABLET 8.6 MG PO (10:28)
[2025-06-01] MEDS: BENZOCAINE-MENTHOL SPRAY 56GM CAN TP (15:04)
[2025-06-01] MEDS: WITCH HAZEL 40 PADS/BOX 1 EACH TP (15:04)
== END 2025-06-01 15:20 | disposition home or self-care (01) | DRG 807 ==
LOC: OBOUT 19:00 → OB 19:00
PROVIDERS: Admitting Provider Obstetrics & Gynecology; Visit Provider Obstetrics & Gynecology
DX: O36.5930 Maternal care for other known or suspected poor fetal growth, third trimester, not applicable or unspecified (principal); Z37.0 Single live birth; Z3A.38 38 weeks gestation of pregnancy; O35.EXX0 Maternal care for other (suspected) fetal abnormality and damage, fetal genitourinary anomalies, not applicable or unspecified; O99.02 Anemia complicating childbirth; O21.9 Vomiting of pregnancy, unspecified; O26.893 Other specified pregnancy related conditions, third trimester; O69.81X0 Labor and delivery complicated by cord around neck, without compression, not applicable or unspecified; O32.6XX0 Maternal care for compound presentation, not applicable or unspecified; O70.1 Second degree perineal laceration during delivery; R12 Heartburn; Z79.899 Other long term (current) drug therapy; Z23 Encounter for immunization
CPT/HCPCS: 36415; 59025; 81001; 85025; 86592; 86850; 87086; 94761; J1756; J2405; J7120